=== PATIENT | female | born 1970 | race Caucasian/White ===

== ENCOUNTER → 2017-02-13 | Outpatient (CLI) | payer BC ==
[~2017-02-13] MED LIST: DIAZ5TAB3 PO; LAMO150T3 PO; OXYCODONE; XANAFLEX
--- NOTE | 2017-02-13 19:37 | Diagnostic Imaging Report ---
Right breast diagnostic mammogram. The current study was also evaluated with a Computer Aided Detection (CAD) system. INDICATION: Follow-up calcifications in the medial right breast. FINDINGS: The right breast is composed of heterogeneously dense parenchyma which may decrease mammographic sensitivity. Calcifications in the posterior medial aspect of the right breast are again noted with no significant change. Overlying vessel is seen and this could be vascular. No definite mass is identified. IMPRESSION: Indeterminate punctate calcifications are seen again in the medial aspect of the right breast posteriorly with an adjacent vessel, could be vascular. Another follow-up when the patient is due for her bilateral mammogram in July 2017 is recommended. ACR BI-RADS Category 3: Probably benign findings. Result letter will be mailed to the patient. Note: At least 10% of breast cancer is not imaged by mammography. Dictated by: Dictated on workstation # [id number]
== END ==
LOC: RAD 13:26
PROVIDERS: ATTEND Nurse Practitioner Family
DX: N60.22 Fibroadenosis of left breast (principal); N63 Unspecified lump in breast

== ENCOUNTER 2017-07-18 20:11 | Inpatient (IN) | payer BC ==
[2017-07-18] VITALS (9 sets, daily range): BP systolic 92–144; BP diastolic 72–101
[~2017-07-18] VITALS: Ht 160 cm; Wt 79.8 kg
[2017-07-18] MEDS ORDERED: ACTIVATED CHARCOAL/SORBITOL 50 G/240 ML BTL ONE (20:13)
[2017-07-18] MEDS ORDERED: CHARCOAL/AQUEOUS 50 GM/240 ML BTL ONE (20:14)
--- OUTSIDE RECORDS SUMMARY | 2017-07-18 20:16 | XMS REPORT | Continuity of Care Document ---
Author Author [employer] Organization [place] Address Unknown Phone Unavailable Care Team Providers Care Sign Hanger Name Role Phone [employer] Unavailable Unavailable Problems Problem Status Onset Date Classification Date Reported Comments Source Refractory migraine (disorder) 12/25/2015 Diagnosis 12/29 [facility] History of - viral illness (context-dependent category) 09/16/2015 Diagnosis 09/20/2015 [facility] Ankle joint pain (finding) 08/17/2015 Diagnosis 2014 [facility] Chalazion 06/17/2015 Diagnosis 06/21/2015 [facility] Absence of menstruation Diagnosis 01/20/2015 [facility] [place] Generalized hyperhidrosis Diagnosis 01/20/2015 [facility] Symptomatic menopausal or female climacteric states 12/19/2014 Diagnosis 12/23/2014 [facility] [place] Decreased libido 12/19/2014 Diagnosis 12/23/2014 [facility] [place] Bipolar disorder, unspecified 12/19/2014 Diagnosis 2014 [facility] Asthma (disorder) Active Problem 10/25/2015 [facility], [facility], [facility] [place], [facility], [facility], [facility] Bipolar (qualifier value) Active Problem 10/25/2015 [facility], [facility], [facility] [place], [facility], [facility], [facility] Migraine (disorder) Active Problem 10/25/2015 [facility], [facility], [facility]., [facility] [place], [facility], [facility] Care involving other physical therapy Diagnosis 2013 [facility]. Pain in joint involving ankle and foot Diagnosis 2013 [facility] Other orthopedic aftercare Diagnosis 04/09/2014 [facility] Medications Medication Details Route Status Patient Instructions Ordering Provider Order Date Source No Known Medications No known medications Active [facility] Allergies, Adverse Reactions, Alerts Substance Category Reaction Severity Reaction type Status Date Reported Comments Source quetiapine Assertion Sleep walking Drug allergy [facility], [facility], [facility] sulfonamides Assertion Anaphylaxis Drug allergy [facility], [facility], [facility], [facility] quetiapine drug allergy Sleep walking Allergy Active [facility], [facility] sulfonamides drug allergy Anaphylaxis Allergy Active [facility], [facility] sulfonamide drug allergy Anaphylaxis Allergy Active [facility] Immunizations Immunization Date Given Site Status Last Updated Comments Source No data available for this section No data available for this section [facility], [facility], [facility]. Results Vital Signs Encounters Location Location Details Encounter Type Encounter Number Reason For Visit Attending Provider ADM Date DC Date Status Source [facility] CD:[id number] Emergency [id number] Keyon Renee 12/20/2012 12/20/2012 Active [facility] CD:[id number] Emergency [id number] Osadc Mk 05/09/2013 05/10/2013 Active [facility] CD:[id number] Emergency [id number] Osama Mk 05/09/2013 05/10/2013 Active [employer] [facility] CD:[id number] Clinic ( Outpatient) [id number] Lasha Subramanian 10/23/2013 Active [employer] [facility] HPO CD:[id number] Clinic ( Outpatient) [id number] Nilesh [place] 12/04/2013 Active [employer] [facility] HPO CD:[id number] Clinic ( Outpatient) [id number] . PROCEDURE ROOM OFPR 12/04/2013 Active [employer] [facility] CD:[id number] Outpatient [id number] Nakul Bird 12/23/2013 01/03/2014 Active [employer] [facility] CD:[id number] Outpatient [id number] Nakul Bird 01/04/2014 02/03/2014 [facility] [id number] Nakul Bird 01/04/2014 02/04/2014 [facility] CD:[id number] Outpatient [id number] Nakul Bird 02/04/2014 03/05/2014 Active [employer] [facility] Outpatient [id number] Nakul Bird 02/04/2014 03/06/2014 [employer] [facility]. [facility] CD:[id number] Outpatient [id number] Nakul Bird 03/06/2014 04/05/2014 Active [employer] [facility] Outpatient [id number] Nakul Bird 03/06/2014 04/06/2014 [employer] [facility]. FC CD:[id number] Clinic ( Outpatient) [id number] Lasha Subramanian 07/30/2014 Active [facility] [id number] Lasha Subramanian 07/30/2014 07/30/2014 [facility] [id number] Lasha Subramanian 12/19/2014 12/20/2014 [facility] Cancel/ No Show [id number] Lasha Subramanian 12/26/2014 12/26/2014 [facility] [id number] Lasha Subramanian 01/16/2015 01/17/2015 [facility] CD:[id number] Emergency [id number] Vicky Terrazas 05/21/2015 05/21/2015 Active [facility] [id number] Lasha Subramanian 06/17/2015 06/18/2015 [facility] [id number] Lasha Subramanian 08/17/2015 08/18/2015 [facility] CD:[id number] Outpatient [id number] [facility] 09/16/201509/2015 Active [facility], [facility] [id number] [facility] 09/16/20152014 [facility] CD:[id number] Outpatient [id number] [facility] 10/06/2015 10/06/2015 Active [facility], [facility]. [facility] Cancel/No Show [id number] [facility] 10/14/2015 10/14/2015 [facility] CD:[id number] Outpatient [id number] [facility] 10/16/2015 10/16/2015 Active [facility], [facility] GIS CD:[id number] Clinic ( Outpatient) [id number] [facility] 10/21/2015 10/21/2015 Active [facility] [id number] Lasha Subramanian 12/25/2015 12/26/2015 [facility] Procedures Procedure Code Date Perfomer Comments Source No data available for this section [facility] Plan of Care Social History Assessment and Plan Family History Value Date Source Advance Directives Order Name Results Value Date Source
[2017-07-18] MEDS ORDERED: CHARCOAL/AQUEOUS 50 GM/240 ML BTL PO ONE (20:30)
[2017-07-18] MEDS ORDERED: NS IV 1000 ML 1,000 ML IV SCH (20:30)
--- NOTE | 2017-07-18 20:32 | ED Psychosocial ---
General Chief Complaint: Substance Abuse Stated Complaint: SUICIDAL ATTEMPT,INTOXICATED Source: patient, family Exam Limitations: no limitations History of Present Illness Time seen by provider: 20:29 Initial Comments Patient is brought to the emergency room by her neighbor with reports of alcohol intoxication and suicide attempt. Patient reports that she took 80 lisinopril/HCTZ 25 minutes ago. She also took 35 Olanzapine, 40 metoprolol. These are unknown dosages. She also had a fifth of R17e whiskey. Patient denies daily drinking but the neighbor states that she drinks nearly daily for at least every other day and her drink of choice is whiskey. Patient reports that she is depressed and sad because her just left for [place] as he travels for work. Timing/Duration: constant Severity: moderate Associated Symptoms: ingestion Allergies and Home Medications Allergies Coded Allergies: Sulfa (Sulfonamide Antibiotics) (Verified Allergy, 11/07/11) Home Medications Diazepam 5 Mg Tablet, 1 EACH PO BID - QID PRN, (Reported) Lamotrigine 150 Mg Tablet, 1 EACH PO BID, (Reported) [Ocycodone] , (Reported) [Xanaflex] , (Reported) Constitutional: see HPI EENTM: see HPI Respiratory: no symptoms reported Cardiovascular: no symptoms reported Genitourinary: no symptoms reported Musculoskeletal: no symptoms reported Skin: no symptoms reported Psychiatric/Neurological: See HPI, Anxiety, Depressed, Emotional Problems Past Icmuyxl-Myrzmq-Ujplrq Hx Patient Social History Recent Foreign Travel: No Contact w/Someone Who Travel: No Physical Exam Vital Signs Vital Sign - Last 12Hours 07/18/17 20:27 Temp 98.6 Pulse 140 Resp 17 B/P (MAP) 90/74 Pulse Ox 95 O2 Delivery Room Air Capillary Refill : General Appearance: WD/WN, no apparent distress HEENT: PERRL/EOMI, normal ENT inspection Neck: non-tender, full range of motion Respiratory: normal breath sounds, no respiratory distress, no accessory muscle use Gastrointestinal: normal bowel sounds, non tender, soft Extremities: normal range of motion, non-tender Neurologic/Psychiatric: alert, oriented x 3, other (laughing inappropriately) Appearance/Memory: appropriate appearance, neat Behavior/Eye Contact: cooperative, good eye contact Thoughts/Hallucinations: normal thought pattern Skin: normal color, warm/dry Progress/Results/Core Measures Results/Orders Lab Results Laboratory Tests Test 07/18/17 20:25 07/18/17 20:35 07/18/17 21:15 Range/Units White Blood Count 7.7 4.3-11.0 10^3/uL Red Blood Count 4.12 L 4.35-5.85 10^6/uL Hemoglobin 13.1 11.5-16.0 G/DL Hematocrit 39 35-52 % Mean Corpuscular Volume 94 80-99 FL Mean Corpuscular Hemoglobin 32 25-34 PG Mean Corpuscular Hemoglobin Concent 34 32-36 G/DL Red Cell Distribution Width 14.5 10.0-14.5 % Platelet Count 349 130-400 10^3/uL Mean Platelet Volume 10.9 H 7.4-10.4 FL Neutrophils (%) (Auto) 30 L 42-75 % Lymphocytes (%) (Auto) 54 H 12-44 % Monocytes (%) (Auto) 14 H 0-12 % Eosinophils (%) (Auto) 1 0-10 % Basophils (%) (Auto) 1 0-10 % Neutrophils # (Auto) 2.3 1.8-7.8 X 10^3 Lymphocytes # (Auto) 4.2 H 1.0-4.0 X 10^3 Monocytes # (Auto) 1.1 H 0.0-1.0 X 10^3 Eosinophils # (Auto) 0.1 0.0-0.3 10^3/uL Basophils # (Auto) 0.1 0.0-0.1 10^3/uL Magnesium Level 1.8 1.8-2.4 MG/DL Salicylates Level < 5.0 L 5.0-20.0 MG/DL Acetaminophen Level < 10 L 10-30 UG/ML Serum Alcohol 381 *H <10 MG/DL My Orders Orders - BENY DEVI APRN Cbc With Automated Diff (07/18/17 20:26) Salicylate (07/18/17 20:26) Acetaminophen (07/18/17 20:26) Ekg Tracing (07/18/17 20:26) Magnesium (07/18/17 20:26) Urinalysis (07/18/17 20:26) Drug Screen Stat (Urine) (07/18/17 20:26) Urine Bedside (07/18/17 20:26) Saline Lock/Iv-Start (07/18/17 20:26) Alcohol (07/18/17 20:26) Ns Iv 1000 Ml (Sodium Chloride 0.9%) (07/18/17 20:30) Charcoal Activated Aqueous (Actidose Aqu (07/18/17 20:30) Lorazepam Injection (Ativan Injection) (07/18/17 20:45) Comprehensive Metabolic Panel (07/18/17 21:08) Lorazepam Injection (Ativan Injection) (07/18/17 21:30) Medications Given in ED Current Medications Medications Dose Ordered Sig/Rommel Route Start Time Stop Time Status Last Admin Dose Admin Charcoal 50 gm ONCE ONCE PO 07/18/17 20:30 07/18/17 20:31 DC 07/18/17 20:15 50 GM Lorazepam 1 mg ONCE ONCE IVP 07/18/17 20:45 07/18/17 20:46 DC 07/18/17 20:45 1 MG Vital Signs/I&O Vital Sign - Last 12Hours 07/18/17 20:27 Temp 98.6 Pulse 140 Resp 17 B/P (MAP) 90/74 Pulse Ox 95 O2 Delivery Room Air Departure Communication (Admissions) Progress Notes [id number]- the patient's Oseas Larsen called. His phone number is . He states that he is in [facility] working currently. He states that the patient brings 1 L of whiskey usually [place] deluxe daily and has done so for 15 years but reduced or drinking amounts to about one fifth of whiskey daily for the past 4 months. She has attempted suicide 6 times in the past 9 years. She's been to rehabilitation twice in the past 9 years. She is hepatitis C positive and has not had treatment. She is a heavy smoker. Impression Impression: Primary Impression: Alcohol abuse Additional Impression: Suicidal behavior with attempted self-injury Disposition: ADMITTED INPATIENT Condition: Stable Admissions Decision to Admit Reason: Admit from ER (General) Decision to Admit/Date: Jul 18, 2017 Time/Decision to Admit Time: 21:25 Departure-Patient Inst. Referrals: MADHAV MARINO MD (PCP) Primary Care Physician ROSMERY MARTINEZ APRN (Family) Primary Care Physician Patient Instructions: ALCOHOL AND SUBSTANCE ABUSE BENY DEVI APRN Jul 18, 2017 20:32
[2017-07-18] MEDS ORDERED: LORazepam INJ 2 MG/ML (ATIVAN) VIAL IVP ONE ×2 (20:45→21:30)
[2017-07-18 21:01] LABS: BASOPHILS # (AUTO) 0.1 10^3/uL (0.0-0.1); BASOPHILS % (AUTO) 1 % (0-10); EOSINOPHILS # (AUTO) 0.1 10^3/uL (0.0-0.3); EOSINOPHILS % (AUTO) 1 % (0-10); LYMPHOCYTES # (AUTO) 4.2 X 10^3 (1.0-4.0); LYMPHOCYTES % (AUTO) 54 % (12-44); MEAN CORPUSCULAR HEMOGLOBIN 32 PG (25-34); MEAN CORPUSCULAR HGB CONC 34 G/DL (32-36); MEAN CORPUSCULAR VOLUME 94 FL (80-99); MEAN PLATELET VOLUME 10.9 FL (7.4-10.4); MONOCYTES # (AUTO) 1.1 X 10^3 (0.0-1.0); MONOCYTES % (AUTO) 14 % (0-12); NEUTROPHILS # (AUTO) 2.3 X 10^3 (1.8-7.8); NEUTROPHILS % (AUTO) 30 % (42-75); PLATELET COUNT 349 10^3/uL (130-400); RED BLOOD COUNT 4.12 10^6/uL (4.35-5.85); RED CELL DISTRIBUTION WIDTH 14.5 % (10.0-14.5); WHITE BLOOD COUNT 7.7 10^3/uL (4.3-11.0)
[2017-07-18 21:13] LABS: MAGNESIUM 1.8 MG/DL (1.8-2.4); SALICYLATE < 5.0 MG/DL (5.0-20.0)
[2017-07-18 21:14] LABS: ACETAMINOPHEN < 10 UG/ML (10-30)
[2017-07-18 21:16] LABS: ALCOHOL 381 MG/DL (<10)
[2017-07-18 21:24] LABS: BILIRUBIN,URINE NEGATIVE (NEGATIVE); KETONES,URINE NEGATIVE (NEGATIVE); LEUKOCYTE ESTERASE ,URINE NEGATIVE (NEGATIVE); NITRITE,URINE NEGATIVE (NEGATIVE); PH,URINE 6 (5-9); PROTEIN,URINE NEGATIVE (NEGATIVE); UROBILINOGEN,URINE NORMAL (NORMAL)
[2017-07-18 21:34] LABS: WBC,URINE RARE /HPF
[2017-07-18 21:36] LABS: ALANINE AMINOTRANSFERASE 71 U/L (0-55); ALBUMIN 4.3 GM/DL (3.2-4.5); ANION GAP 15 MMOL/L (5-14); ASPARTATE AMINO TRANSFERASE 60 U/L (5-34); BILIRUBIN,TOTAL 0.3 MG/DL (0.1-1.0); BLOOD UREA NITROGEN 7 MG/DL (7-18); BUN/CREATININE RATIO 8; CALCIUM 9.4 MG/DL (8.5-10.1); CARBON DIOXIDE 20 MMOL/L (21-32); CHLORIDE 107 MMOL/L (98-107); CREATININE SERUM 0.84 MG/DL (0.60-1.30); GFR ESTIMATED > 60; GLUCOSE 147 MG/DL (70-105); POTASSIUM 3.2 MMOL/L (3.6-5.0); SODIUM 142 MMOL/L (135-145); TOTAL PROTEIN 8.3 GM/DL (6.4-8.2)
--- OUTSIDE RECORDS SUMMARY | 2017-07-18 21:44 | XMS REPORT | Continuity of Care Document ---
Author Author [employer] Organization [place] Address Unknown Phone Unavailable Care Team Providers Care Bilingual Account Manager Name Role Phone [employer] Unavailable Unavailable Problems Problem Status Onset Date Classification Date Reported Comments Source Refractory migraine (disorder) 12/25/2015 Diagnosis 12/29 [facility] History of - viral illness (context-dependent category) 09/16/2015 Diagnosis 09/20/2015 [facility] Ankle joint pain (finding) 08/17/[address] [facility] Chalazion 06/17/2015 Diagnosis 06/21/2015 [facility] Absence of menstruation Diagnosis 01/20/2015 [facility] [place] Generalized hyperhidrosis Diagnosis 01/20/2015 [facility] Symptomatic menopausal or female climacteric states 12/19/2014 Diagnosis 12/23/2014 [facility] [place] Decreased libido 12/19/2014 Diagnosis 12/23/2014 [facility] Bipolar disorder, unspecified 12/19/[address] [facility] Asthma (disorder) Active Problem 10/25/2015 [facility], [facility], [facility], [facility], [facility], [facility] Bipolar (qualifier value) Active Problem 10/25/2015 [facility], [facility], [facility] [place], [facility], [facility], [facility] Migraine (disorder) Active Problem 10/25/2015 [facility], [facility], [facility] [place], [facility], [facility] Care involving other physical therapy Diagnosis 2013 [facility]. Pain in joint involving ankle and foot Diagnosis 2013 [facility] Other orthopedic aftercare Diagnosis 04/09/2014 [facility] Medications Medication Details Route Status Patient Instructions Ordering Provider Order Date Source No Known Medications No known medications Active [facility] Allergies, Adverse Reactions, Alerts Substance Category Reaction Severity Reaction type Status Date Reported Comments Source quetiapine Assertion Sleep walking Drug allergy [facility], [facility], [facility] sulfonamides Assertion Anaphylaxis Drug allergy [facility], [facility], [facility], [facility] quetiapine drug allergy Sleep walking Allergy Active [facility], [facility] sulfonamides drug allergy Anaphylaxis Allergy Active [facility], [facility] sulfonamide drug allergy Anaphylaxis Allergy Active [facility] Immunizations Immunization Date Given Site Status Last Updated Comments Source No data available for this section No data available for this section [facility], [facility], [facility]. Results Vital Signs Encounters Location Location Details Encounter Type Encounter Number Reason For Visit Attending Provider ADM Date DC Date Status Source [facility] CD:[id number] Emergency [id number] Keyon Renee 12/20/2012 12/20/2012 Active [facility] CD:[id number] Emergency [id number] Osadc Mk 05/09/2013 05/10/2013 Active [facility] CD:[id number] Emergency [id number] Osama Mk 05/09/2013 05/10/2013 Active [facility] [employer] [facility] CD:[id number] Clinic ( Outpatient) [id number] Lasha Subramanian 10/23/2013 Active [employer] [facility]PO CD:[id number] Clinic ( Outpatient) [id number] Nilesh [place] 12/04/2013 Active [employer] [facility]PO CD:[id number] Clinic ( Outpatient) [id number] . PROCEDURE ROOM OFPR 12/04/2013 Active [employer] [facility] CD:[id number] Outpatient [id number] Nakul Bird 12/23/2013 01/03/2014 Active [employer] [facility] CD:[id number] Outpatient [id number] Nakul Bird 01/04/2014 02/03/2014 [facility] Out[facility] [id number] Nakul Bird 01/04/2014 02/04/2014 [facility]. [facility] CD:[id number] Outpatient [id number] Nakul Bird 02/04/2014 03/05/2014 Active [employer] [facility] Outpatient [id number] Nakul Bird 02/04/2014 03/06/2014 [employer] [facility]. [facility] CD:[id number] Outpatient [id number] Nakul Bird 03/06/2014 04/05/2014 Active [employer] [facility] Outpatient [id number] Nakul Bird 03/06/2014 04/06/2014 [employer] [facility]. FC CD:[id number] Clinic ( Outpatient) [id number] Lasha Subramanian 07/30/2014 Active [facility] [id number] Lasha Subramanian 07/30/2014 07/30/2014 [facility] [id number] Lasha Subramanian 12/19/2014 12/20/2014 [facility] Cancel/ No Show [id number] Lasha Subramanian 12/26/2014 12/26/2014 [facility] [id number] Lasha Subramanian 01/16/2015 01/17/2015 [facility] CD:[id number] Emergency [id number] Vicky Terrazas 05/21/2015 05/21/2015 Active [facility] [id number] Lasha Subramanian 06/17/2015 06/18/2015 [facility] [id number] Lasha Subramanian 08/17/2015 08/18/2015 [facility] CD:[id number] Outpatient [id number] [facility] 09/16/201509/2015 Active [facility] [id number] [facility] 09/16/20152014 [facility] CD:[id number] Outpatient [id number] [facility] 10/06/2015 10/06/2015 Active [facility] Cancel/No Show [id number] [facility] 10/14/2015 10/14/2015 [facility] CD:[id number] Outpatient [id number] [facility] 10/16/2015 10/16/2015 Active [facility] GIS CD:[id number] Clinic ( Outpatient) [id number] [facility] 10/21/2015 10/21/2015 Active [facility] [id number] Lasha Subramanian 12/25/2015 12/26/2015 [facility] Procedures Procedure Code Date Perfomer Comments Source No data available for this section [facility] Plan of Care Social History Assessment and Plan Family History Value Date Source Advance Directives Order Name Results Value Date Source
[2017-07-18] MEDS ORDERED: THIAMINE INJECTION 100 MG, FOLIC ACID INJECTION 1 MG, VITAMIN MULTI INJECTION 10 ML, MA... IV ONE ×5 (23:45)
[2017-07-18] MEDS ORDERED: ONDANSETRON 4 MG/2 ML (SDV) Z0FRAN IV PRN (23:45)
[2017-07-19] VITALS (25 sets, daily range): BP systolic 91–136; BP diastolic 57–104
[2017-07-19] MEDS ORDERED: KETOROLAC 30 MG/ML VIAL IVP ONE (00:15)
[2017-07-19] MEDS: NS W/KCL 40 MEQ/L 1,000 ML IV SCH ×3 (00:21→17:08)
[2017-07-19 04:41] LABS: BASOPHILS # (AUTO) 0.1 10^3/uL (0.0-0.1); BASOPHILS % (AUTO) 1 % (0-10); EOSINOPHILS # (AUTO) 0.1 10^3/uL (0.0-0.3); EOSINOPHILS % (AUTO) 2 % (0-10); LYMPHOCYTES # (AUTO) 3.6 X 10^3 (1.0-4.0); LYMPHOCYTES % (AUTO) 56 % (12-44); MEAN CORPUSCULAR HEMOGLOBIN 33 PG (25-34); MEAN CORPUSCULAR HGB CONC 34 G/DL (32-36); MEAN CORPUSCULAR VOLUME 95 FL (80-99); MEAN PLATELET VOLUME 10.6 FL (7.4-10.4); MONOCYTES # (AUTO) 1.1 X 10^3 (0.0-1.0); MONOCYTES % (AUTO) 17 % (0-12); NEUTROPHILS # (AUTO) 1.6 X 10^3 (1.8-7.8); NEUTROPHILS % (AUTO) 25 % (42-75); PLATELET COUNT 316 10^3/uL (130-400); RED BLOOD COUNT 3.75 10^6/uL (4.35-5.85); RED CELL DISTRIBUTION WIDTH 14.5 % (10.0-14.5); WHITE BLOOD COUNT 6.4 10^3/uL (4.3-11.0)
[2017-07-19 05:08] LABS: ALANINE AMINOTRANSFERASE 59 U/L (0-55); ALBUMIN 3.7 GM/DL (3.2-4.5); ANION GAP 11 MMOL/L (5-14); ASPARTATE AMINO TRANSFERASE 43 U/L (5-34); BILIRUBIN,TOTAL 0.5 MG/DL (0.1-1.0); BLOOD UREA NITROGEN 6 MG/DL (7-18); BUN/CREATININE RATIO 7; CALCIUM 8.7 MG/DL (8.5-10.1); CARBON DIOXIDE 23 MMOL/L (21-32); CHLORIDE 106 MMOL/L (98-107); CREATININE SERUM 0.84 MG/DL (0.60-1.30); GFR ESTIMATED > 60; GLUCOSE 138 MG/DL (70-105); MAGNESIUM 1.6 MG/DL (1.8-2.4); PHOSPHORUS 2.6 MG/DL (2.3-4.7); POTASSIUM 3.6 MMOL/L (3.6-5.0); SODIUM 140 MMOL/L (135-145); TOTAL PROTEIN 7.1 GM/DL (6.4-8.2)
[2017-07-19] MEDS ORDERED: 1/2 NS IV SOLUTION 1,000 ML IV PRN (05:21)
[2017-07-19] MEDS ORDERED: MAGNESIUM 1 GM/100 ML IVPB 200 ML IV ONE (05:29)
[2017-07-19] MEDS ORDERED: D5 1/2 NS 1000 ML IV SOLUTION 1,000 ML IV PRN (05:30)
[2017-07-19] MEDS ORDERED: LORazepam 1 MG (ATIVAN) TAB PO PRN (05:30)
[2017-07-19] MEDS ORDERED: LORazepam INJ 2 MG/ML (ATIVAN) VIAL IV PRN (05:30)
[2017-07-19] MEDS ORDERED: LORazepam INJ 2 MG/ML (ATIVAN) VIAL IM/IV PRN (05:30)
[2017-07-19] MEDS: POTASSIUM CL 10MEQ/50ML IVPB 50 ML IV SCH ×2 (05:40→05:41)
[2017-07-19] MEDS: MAGNESIUM 1 GM/100 ML IVPB 100 ML IV SCH ×2 (05:40→05:41)
[2017-07-19] MEDS ORDERED: POTASSIUM CL 10MEQ/50ML IVPB 50 ML IV SCH (06:00)
[2017-07-19] MEDS ORDERED: MAGNESIUM 1 GM/100 ML IVPB 100 ML IV SCH (06:00)
[2017-07-19] MEDS ORDERED: KCL 20 MEQ TAB (K-DUR) PO SCH (06:00)
--- NOTE | 2017-07-19 09:22 | Diagnostic Imaging Report ---
INDICATION: Intoxication. FINDINGS: The lungs are clear. The heart and vessels are normal. There is no effusion or pneumothorax. IMPRESSION: Negative. Dictated by: Dictated on workstation # [id number]
[2017-07-19] MEDS ORDERED: LISI1TAB6 PO (09:27)
[2017-07-19] MEDS ORDERED: OLAN2.5T27 PO (09:27)
[2017-07-19] MEDS ORDERED: DULO30CA48 PO (09:27)
[2017-07-19] MEDS ORDERED: METO-333 PO (09:28)
[2017-07-19] MEDS ORDERED: NF-ADDXR30 PO (09:29)
[2017-07-19] MEDS ORDERED: OXYC10TA7 PO (09:31)
[2017-07-19] MEDS ORDERED: MELO15TA39 PO (09:31)
[2017-07-19] MEDS: FOLIC ACID 1 MG TAB PO SCH (10:36)
[2017-07-19] MEDS: THIAMINE 100 MG (VITAMIN B-1) TAB PO SCH (10:36)
--- NOTE | 2017-07-19 11:37 | History & Physicial ([facility]) ---
HPI History of Present Illness: 47 yo F that is a known alcoholic that presented to ER after taking pills at home in an attempt to hurt herself. Patient states that around 8 PM last night she took an unknown amount of Metoprolol, Lisinopril-HCTZ and Olanzapine. States that she took these pills because her was leaving and she was trying to get him to stay. Denies wanting to hurt herself this AM and is very worried about her kids and what will happen to them. has called several times and has got patient a bed at a rehab center for her alcohol use. He states that she drinks about 1 liter of alcohol daily. Patient states that she has had a seizure before when she was coming off Benzo but not when she is coming off alcohol. Denies any DTs in the past. States that at home she can not have a drink for several days and gets a little shaky but is ok. Source: patient, RN/MD, old records Exam Limitations: no limitations Date seen by provider: Jul 19, 2017 Time Seen by Provider: 10:15 Attending Physician Bella Morrison MD PCP Lito Hirsch MD Consult Date of Admission Jul 18, 2017 at 21:40 Home Medications Home Medications Reviewed patient Home Medication Reconciliation Form Allergies Coded Allergies: Sulfa (Sulfonamide Antibiotics) (Verified Allergy, Unknown, 07/18/17) [id number] Hx Patient Social History Living Status: Lives in home with 2 children and Alcohol Use: Regular Use Recreational Drug Use: No (PT DENIES) Smoking Status: Current Everyday Smoker Type Used: Cigarettes Recent Foreign Travel: No Contact w/other who traveled: No Recent Hopitalizations: No Recent Infectious Disease Expo: No Physical Abuse Screen: No Sexual Abuse: No Past Medical History HTN Alcoholism Depression with Anxiety Review of Systems ([facility]) Constitutional: No chills, No dizziness, No fever, malaise EENTM: no symptoms reported, No hearing loss, No vision loss Respiratory: no symptoms reported, No cough, No dyspnea on exertion, No hemoptysis, No short of breath Cardiovascular: no symptoms reported, No chest pain, No palpitations Gastrointestinal: no symptoms reported, No abdominal pain, No constipation, No diarrhea, No loss of appetite, No nausea, No vomiting Genitourinary: no symptoms reported, No dysuria, No frequency, No hematuria : No Musculoskeletal: no symptoms reported, No back pain, No joint pain, No muscle pain Skin: no symptoms reported, No lesions, No rash Psychiatric/Neurological: Anxiety, Depressed, Denies Headache, Denies Seizure Reviewed Test Results Reviewed Test Results Lab Laboratory Tests Test 07/18/17 20:25 07/18/17 20:35 07/18/17 21:15 07/19/17 04:15 Range/Units White Blood Count 7.7 4.3-11.0 10^3/uL Red Blood Count 4.12 L 4.35-5.85 10^6/uL Hemoglobin 13.1 11.5-16.0 G/DL Hematocrit 39 35-52 % Mean Corpuscular Volume 94 80-99 FL Mean Corpuscular Hemoglobin 32 25-34 PG Mean Corpuscular Hemoglobin Concent 34 32-36 G/DL Red Cell Distribution Width 14.5 10.0-14.5 % Platelet Count 349 130-400 10^3/uL Mean Platelet Volume 10.9 H 7.4-10.4 FL Neutrophils (%) (Auto) 30 L 42-75 % Lymphocytes (%) (Auto) 54 H 12-44 % Monocytes (%) (Auto) 14 H 0-12 % Eosinophils (%) (Auto) 1 0-10 % Basophils (%) (Auto) 1 0-10 % Neutrophils # (Auto) 2.3 1.8-7.8 X 10^3 Lymphocytes # (Auto) 4.2 H 1.0-4.0 X 10^3 Monocytes # (Auto) 1.1 H 0.0-1.0 X 10^3 Eosinophils # (Auto) 0.1 0.0-0.3 10^3/uL Basophils # (Auto) 0.1 0.0-0.1 10^3/uL Magnesium Level 1.8 1.8-2.4 MG/DL Salicylates Level < 5.0 L 5.0-20.0 MG/DL Acetaminophen Level < 10 L 10-30 UG/ML Serum Alcohol 381 *H 180 H <10 MG/DL Sodium Level 142 135-145 MMOL/L Potassium Level 3.2 L 3.6-5.0 MMOL/L Chloride Level 107 98-107 MMOL/L Carbon Dioxide Level 20 L 21-32 MMOL/L Anion Gap 15 H 5-14 MMOL/L Blood Urea Nitrogen 7 7-18 MG/DL Creatinine 0.84 0.60-1.30 MG/DL Estimat Glomerular Filtration Rate > 60 BUN/Creatinine Ratio 8 Glucose Level 147 H 70-105 MG/DL Calcium Level 9.4 8.5-10.1 MG/DL Total Bilirubin 0.3 0.1-1.0 MG/DL Aspartate Amino Transf (AST/SGOT) 60 H 5-34 U/L Alanine Aminotransferase (ALT/SGPT) 71 H 0-55 U/L Alkaline Phosphatase 82 40-136 U/L Total Protein 8.3 H 6.4-8.2 GM/DL Albumin 4.3 3.2-4.5 GM/DL Urine Color YELLOW Urine Clarity CLEAR Urine pH 6 5-9 Urine Specific [place] 1.005 L 1.016-1.022 Urine Protein NEGATIVE NEGATIVE Urine Glucose (UA) NEGATIVE NEGATIVE Urine Ketones NEGATIVE NEGATIVE Urine Nitrite NEGATIVE NEGATIVE Urine Bilirubin NEGATIVE NEGATIVE Urine Urobilinogen NORMAL NORMAL MG/DL Urine Leukocyte Esterase NEGATIVE NEGATIVE Urine RBC (Auto) NEGATIVE NEGATIVE Urine RBC NONE /HPF Urine WBC RARE /HPF Urine Squamous Epithelial Cells 2-5 /HPF Urine Crystals NONE /LPF Urine Bacteria NEGATIVE /HPF Urine Casts NONE /LPF Urine Mucus NEGATIVE /LPF Urine Culture Indicated NO Urine Opiates Screen NEGATIVE NEGATIVE Urine Oxycodone Screen NEGATIVE NEGATIVE Urine Methadone Screen NEGATIVE NEGATIVE Urine Propoxyphene Screen NEGATIVE NEGATIVE Urine Barbiturates Screen NEGATIVE NEGATIVE Ur Tricyclic Antidepressants Screen NEGATIVE NEGATIVE Urine Phencyclidine Screen NEGATIVE NEGATIVE Urine Amphetamines Screen NEGATIVE NEGATIVE Urine Methamphetamines Screen NEGATIVE NEGATIVE Urine Benzodiazepines Screen NEGATIVE NEGATIVE Urine Cocaine Screen NEGATIVE NEGATIVE Urine Cannabinoids Screen NEGATIVE NEGATIVE Test 07/19/17 04:21 07/19/17 04:29 Range/Units Glucometer 119 H 70-110 MG/DL White Blood Count 6.4 4.3-11.0 10^3/uL Red Blood Count 3.75 L 4.35-5.85 10^6/uL Hemoglobin 12.2 11.5-16.0 G/DL Hematocrit 36 35-52 % Mean Corpuscular Volume 95 80-99 FL Mean Corpuscular Hemoglobin 33 25-34 PG Mean Corpuscular Hemoglobin Concent 34 32-36 G/DL Red Cell Distribution Width 14.5 10.0-14.5 % Platelet Count 316 130-400 10^3/uL Mean Platelet Volume 10.6 H 7.4-10.4 FL Neutrophils (%) (Auto) 25 L 42-75 % Lymphocytes (%) (Auto) 56 H 12-44 % Monocytes (%) (Auto) 17 H 0-12 % Eosinophils (%) (Auto) 2 0-10 % Basophils (%) (Auto) 1 0-10 % Neutrophils # (Auto) 1.6 L 1.8-7.8 X 10^3 Lymphocytes # (Auto) 3.6 1.0-4.0 X 10^3 Monocytes # (Auto) 1.1 H 0.0-1.0 X 10^3 Eosinophils # (Auto) 0.1 0.0-0.3 10^3/uL Basophils # (Auto) 0.1 0.0-0.1 10^3/uL Sodium Level 140 135-145 MMOL/L Potassium Level 3.6 3.6-5.0 MMOL/L Chloride Level 106 98-107 MMOL/L Carbon Dioxide Level 23 21-32 MMOL/L Anion Gap 11 5-14 MMOL/L Blood Urea Nitrogen 6 L 7-18 MG/DL Creatinine 0.84 0.60-1.30 MG/DL Estimat Glomerular Filtration Rate > 60 BUN/Creatinine Ratio 7 Glucose Level 138 H 70-105 MG/DL Calcium Level 8.7 8.5-10.1 MG/DL Phosphorus Level 2.6 2.3-4.7 MG/DL Magnesium Level 1.6 L 1.8-2.4 MG/DL Total Bilirubin 0.5 0.1-1.0 MG/DL Aspartate Amino Transf (AST/SGOT) 43 H 5-34 U/L Alanine Aminotransferase (ALT/SGPT) 59 H 0-55 U/L Alkaline Phosphatase 68 40-136 U/L Total Protein 7.1 6.4-8.2 GM/DL Albumin 3.7 3.2-4.5 GM/DL Radiology Date of Exam: 07/19/17 CHEST 1 VIEW, AP/PA ONLY INDICATION: Intoxication. FINDINGS: The lungs are clear. The heart and vessels are normal. There is no effusion or pneumothorax. IMPRESSION: Negative. Physical Exam-([facility]) Physical Exam Vital Signs VS - Last 72 Hours, by Label 07/18/17 07/18/17 07/18/17 07/18/17 20:27 22:30 22:35 22:35 Temp 98.6 98.6 Pulse 140 125 111 111 Resp 17 17 34 B/P (MAP) 90/74 144/99 Pulse Ox 95 96 94 O2 Delivery Room Air Nasal Cannula Room Air O2 Flow Rate 2.00 07/18/17 07/18/17 07/18/17 07/18/17 22:45 22:50 23:00 23:10 Pulse 111 117 118 121 Resp 15 19 31 33 B/P (MAP) 112/72 128/92 124/91 92/82 Pulse Ox 91 91 90 92 O2 Delivery Room Air Room Air Room Air Room Air 07/18/17 07/18/17 07/18/17 07/18/17 23:20 23:30 23:40 23:50 Pulse 121 124 111 99 Resp 30 22 14 20 B/P (MAP) 117/99 111/101 123/77 110/85 Pulse Ox 94 94 97 95 O2 Delivery Room Air Room Air Room Air Room Air 07/19/17 07/19/17 07/19/17 07/19/17 00:00 00:00 01:00 01:00 Pulse 99 110 110 Resp 25 17 B/P (MAP) 105/89 99/66 Pulse Ox 97 92 O2 Delivery Room Air Room Air Room Air 07/19/17 07/19/17 07/19/17 07/19/17 01:30 02:00 03:00 04:00 Pulse 107 99 115 Resp 13 22 20 B/P (MAP) 109/57 102/78 98/58 Pulse Ox 94 90 91 O2 Delivery Room Air Room Air Room Air Room Air 07/19/17 07/19/17 07/19/17 07/19/17 04:00 05:00 06:00 07:00 Pulse 123 120 112 113 Resp 19 20 15 B/P (MAP) 96/64 104/68 91/60 Pulse Ox 90 94 92 O2 Delivery Room Air Room Air Room Air Capillary Refill : Less Than 3 SecondsLess Than 3 Seconds General Appearance: no apparent distress HEENT: PERRL/EOMI Neck: non-tender, supple Respiratory: chest non-tender, lungs clear, normal breath sounds, no respiratory distress, no accessory muscle use Cardiovascular: normal peripheral pulses, regular rate, rhythm, no edema, no murmur Gastrointestinal: normal bowel sounds, non tender, soft, no organomegaly Back: no CVA tenderness Extremities: normal range of motion, non-tender, normal inspection, no pedal edema, no calf tenderness, normal capillary refill Neurologic/Psychiatric: 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, no motor/sensory deficits, alert, oriented x 3, depressed affect (anxious when talking about plans for her children) Skin: normal color, warm/dry Lymphatic: no adenopathy Assessment/Plan Assessment/Plan Plan 47 yo F with known alcoholism that was admitted for intentional ingestion in attempt of suicide Plan Intentional ingestion in attempt of suicide - ICU care for hourly vitals, HDS - Denies any thoughts to hurt herself at this time - Given Charcoal in the ER Alcoholism - Monitor for withdraw symptoms, CIWS - Start Folate and Thiamine daily supplements - Inpatient Rehab facility with bed available for patient Elevated LFTs - Likely from alcoholism but patient has never had acute hepatitis panel in hosp - Hepatitis panel pending FEN: Reg diet DVT PPX: SCDs Dispo: Continue admission and monitor for signs of withdraw prior to transfer to rehab Diagnosis/Problems: Clinical Quality Measures DVT/VTE Risk/Contraindication: Risk Factor Score Per Nursin RFS Level Per Nursing on Admit: 2=Moderate Copy Copies To 1: Yamel YE HOLLY R MD Jul 19, 2017 11:37
[2017-07-19] MEDS: NICOTINE 21 MG (NICODERM) PATCH TD SCH (18:25)
[2017-07-20 00:20] VITALS: BP 150/90
[2017-07-20] MEDS: LORazepam 1 MG (ATIVAN) TAB PO PRN ×3 (00:44→12:13)
[2017-07-20] MEDS: NS W/KCL 40 MEQ/L 1,000 ML IV SCH ×2 (00:49→08:51)
[2017-07-20 03:30] VITALS: BP 133/98
[2017-07-20 04:00] VITALS: BP 132/90
[2017-07-20 06:09] LABS: BASOPHILS # (AUTO) 0.1 10^3/uL (0.0-0.1); BASOPHILS % (AUTO) 1 % (0-10); EOSINOPHILS # (AUTO) 0.1 10^3/uL (0.0-0.3); EOSINOPHILS % (AUTO) 3 % (0-10); LYMPHOCYTES # (AUTO) 1.3 X 10^3 (1.0-4.0); LYMPHOCYTES % (AUTO) 32 % (12-44); MEAN CORPUSCULAR HEMOGLOBIN 32 PG (25-34); MEAN CORPUSCULAR HGB CONC 33 G/DL (32-36); MEAN CORPUSCULAR VOLUME 97 FL (80-99); MONOCYTES # (AUTO) 0.7 X 10^3 (0.0-1.0); MONOCYTES % (AUTO) 17 % (0-12); NEUTROPHILS # (AUTO) 1.9 X 10^3 (1.8-7.8); NEUTROPHILS % (AUTO) 47 % (42-75); PLATELET COUNT 245 10^3/uL (130-400); RED CELL DISTRIBUTION WIDTH 14.7 % (10.0-14.5)
[2017-07-20] MEDS: THIAMINE 100 MG (VITAMIN B-1) TAB PO SCH (06:26)
[2017-07-20 06:32] LABS: ANION GAP 9 MMOL/L (5-14); BLOOD UREA NITROGEN 4 MG/DL (7-18); BUN/CREATININE RATIO 6; CARBON DIOXIDE 18 MMOL/L (21-32); CHLORIDE 114 MMOL/L (98-107); GFR ESTIMATED > 60; GLUCOSE 90 MG/DL (70-105); POTASSIUM 4.1 MMOL/L (3.6-5.0); SODIUM 141 MMOL/L (135-145)
[2017-07-20 07:42] VITALS: BP 143/98
[2017-07-20] MEDS: FOLIC ACID 1 MG TAB PO SCH (07:58)
[2017-07-20] MEDS: NICOTINE 21 MG (NICODERM) PATCH TD SCH (07:59)
[2017-07-20] MEDS ORDERED: FOLIC ACID 1 MG TAB PO SCH (09:00)
--- NOTE | 2017-07-20 10:46 | Discharge Summary ---
Diagnosis/Chief Complaint Date of Admission Jul 18, 2017 at 21:40 Date of Discharge 07/20/17 Admission Diagnosis Admission Diagnosis Intentional overdose Suicide Attempt Elevated Liver Enzymes Alcoholism Discharge Diagnosis See Above Chief Complaint/HPI Chief Complaint/HPI 47 yo F that is a known alcoholic that presented to ER after taking pills at home in an attempt to hurt herself. Patient states that around 8 PM last night she took an unknown amount of Metoprolol, Lisinopril-HCTZ and Olanzapine. States that she took these pills because her was leaving and she was trying to get him to stay. Denies wanting to hurt herself this AM and is very worried about her kids and what will happen to them. has called several times and has got patient a bed at a rehab center for her alcohol use. He states that she drinks about 1 liter of alcohol daily. Patient states that she has had a seizure before when she was coming off Benzo but not when she is coming off alcohol. Denies any DTs in the past. States that at home she can not have a drink for several days and gets a little shaky but is ok. Discharge Summary-Simple/Stand Consultations Discharge Physical Examination Allergies: Coded Allergies: Sulfa (Sulfonamide Antibiotics) (Verified Allergy, Unknown, 07/18/17) Vitals & I&Os Vital Sign - Last 12Hours Date Time Temp Pulse Resp B/P (MAP) Pulse Ox O2 Delivery O2 Flow Rate FiO2 07/20/17 07:42 98.3 101 20 143/98 97 Room Air 07/18/17 22:30 2.00 General Appearance: Alert, Oriented X3, Cooperative, No Acute Distress HEENT: PERRLA Respiratory: Clear to Auscultation, Normal Air Movement Cardiovascular: Regular Rate, No Murmurs, Other (Mild R chest tenderness, no rib stepoffs or bruising) Abdominal: Normal Bowel Sounds, Soft, No Tenderness, No Hepatosplenomegaly Extremities: No Edema, No Tenderness/Swelling Skin: No Rashes Neuro: Strength at 5/5 X4 Ext, Cranial Nerves 3-12 NL Psych/Mental Status: Mental Status NL, Mood NL Hospital Course See final discharge diagnosis. Pending Labs Hepatitis Panel Radiology Reviewed Date of Exam: 07/19/17 CHEST 1 VIEW, AP/PA ONLY INDICATION: Intoxication. FINDINGS: The lungs are clear. The heart and vessels are normal. There is no effusion or pneumothorax. IMPRESSION: Negative. Discussion & Recommendations 47 yo F brought to ER after intentional overdose. Patient has a long history of alcoholism and has been to treatment several times. She has a bed in an inpatient rehab that her got set up. Patient had minimal withdraw symptoms and did not require ativan. She is medically stable at time of discharge. Discharge Condition at discharge Stable Instructions to patient/family Please see electronic discharge instructions given to patient. Discharge Medications Reviewed and agree with Discharge Medication list on patient's Discharge Instruction sheet Clinical Quality Measures DVT/VTE Risk/Contraindication: Risk Factor Score Per Nursin RFS Level Per Nursing on Admit: 2=Moderate Copy Copies To 1: STEFANI TOVAR MD, HOLLY R MD Jul 20, 2017 10:46
--- NOTE | 2017-07-20 10:55 | Discharge Instructions ---
Discharge [facility] Discharge Medications New, Converted or Re-Newed RX: Transmitted to Pharmacy Continued Medications: Lisinopril/Hydrochlorothiazide (Lisinopril-Hctz 10-12.5 mg Tab) 1 Each Tablet 1 EACH PO DAILY, TAB Discontinued Medications: Duloxetine HCl (Duloxetine HCl) 30 Mg Capsule.dr 30 MG PO DAILY, CAP Meloxicam (Meloxicam) 15 Mg Tablet 15 MG PO DAILY, TAB Metoprolol Tartrate (Metoprolol Tartrate) 25 Mg Tablet 25 MG PO BID, TAB Olanzapine (Olanzapine) 2.5 Mg Tablet 2.5 MG PO BID, TAB Patient Instructions Goal/Follow Up Appt: Patient moving to [place], [place] after rehab Activity & Diet Discharge Diet: No Restrictions Activity as Tolerated: Yes Copy Copies To 1: STEFANI TOVAR MD, HOLLY R MD Jul 20, 2017 10:55
[2017-07-20] MEDS ORDERED: LISI1TAB6 PO (10:56)
[2017-07-20 12:00] VITALS: BP 137/102
[2017-07-20 12:28] VITALS: BP 137/102
[2017-07-21 07:35] LABS: HCV INDEX >11.00 Index (0.00-0.79)
[2017-07-21] MEDS ORDERED: NICOTINE PATCH REMOVAL TP SCH (08:59)
== END 2017-07-20 12:26 | disposition other institution (70) | DRG 918 ==
LOC: EDUNIT# 20:11 → ER 20:12 → ICU 21:40 → 4TH 07-20 00:10
PROVIDERS: ADMIT Family Medicine; ATTEND Family Medicine
DX: T46.4X2A Poisoning by angiotensin-converting-enzyme inhibitors, intentional self-harm, initial encounter (principal); T43.592A Poisoning by other antipsychotics and neuroleptics, intentional self-harm, initial encounter; T44.7X2A Poisoning by beta-adrenoreceptor antagonists, intentional self-harm, initial encounter; T51.92XA Toxic effect of unspecified alcohol, intentional self-harm, initial encounter; F10.229 Alcohol dependence with intoxication, unspecified; F32.9 Major depressive disorder, single episode, unspecified; B19.20 Unspecified viral hepatitis C without hepatic coma; F17.210 Nicotine dependence, cigarettes, uncomplicated
CPT/HCPCS: 36415; 71010; 80048; 80053; 80074; 80306; 80320; 80329; 81000; 82962; 83735; 84100; 84703; 85025; 87081; 93005; 96361; 96374; 96376